=== PATIENT | female | born 1985 | race Caucasian/White ===

== ENCOUNTER → 2023-11-21 14:45 | Outpatient (REF) | payer OTHER, SELFPAY | LOC: HWRAD 14:45 | PROVIDERS: ATTENDING PHYSICIAN Nurse Practitioner Family; FAMILY PHYSICIAN Family Medicine | DX: N83.201 Unspecified ovarian cyst, right side (principal) | CPT/HCPCS: 76830; 76856 ==

== ENCOUNTER 2023-12-07 18:29 | Emergency (ER) | payer OTHER, SELFPAY ==
[2023-12-07 18:31] VITALS: BP 128/69
[2023-12-07] MEDS: FLEXERIL 10 MG PO (19:12)
--- NOTE | 2023-12-07 21:13 | ED.GENMED ---
History of Present Illness
General
Chief Complaint: Back Pain
Source: patient
Exam Limitations: none
Time Seen by Provider: 12/07/23 18:45
Nursing documentation reviewed up to this point in time: agreed with
Travel History
Have you had any contact with someone who has COVID-19?: No
Do you have any symptoms of coronavirus? Fever > 100 degrees, chills, cough, shortness of breath, sore throat, loss of taste or smell, muscle aches, or headache?: No
History of Present Illness
History of Present Illness:
Patient to ED with complaint of low back pain. States she was tightening child seat in car and developed pain. No radiation of pain, no weakness in extremities, no bowel or bladder issues. Taking ibu without improvement. BRought to ED by spouse
for eval.
Past History
Past History
ED Past Medical History: None
ED Past Surgical History: None
Review of Systems
Review of Systems
Allergies reviewed?: Yes
All Other Systems: ROS reviewed and negative except as documented in HPI and ROS
Constitutional: Reports no symptoms
EENT: Reports no symptoms
Respiratory: Reports no symptoms
Cardiac: Reports no symptoms
ABD/GI: Reports no symptoms
Musculoskeletal: Reports back pain (low back pain)
Skin: Reports no symptoms
Neurological: Reports no symptoms
Psychiatric: Reports no symptoms
Phy Exam
General Physical Exam
General Presentation: well appearing and mild distress
General age: appears stated age
General Skin: warm
General Habitus: normal
General Mental: alert
General Hydration: appears well hydrated
Musculoskeletal Exam
Musculoskeletal Exam: neuro vasc intact
Skin Exam
Skin Exam: normal color, warm/dry and no rash
Psychiatric Exam
Psychiatric Exam: normal mood/affect
Course
Orders/Labs/Results
Orders:
Orders
12/07/23 19:05
Cyclobenzaprine HCl [Flexeril] 10 mg PO NOW STA
12/07/23 19:33
Lumbar Spine Complete, 4 View [CR Lumbar Spine Comp Min 4 Vw*] Urgent
Comment:
Reason For Exam: pain
Vital Signs
Initial and Last Documented VS:
Initial Vital Signs
Temp Pulse Resp BP Pulse Ox
98.6 F 83 16 128/69 98
12/07/23 18:31 12/07/23 18:31 12/07/23 18:31 12/07/23 18:31 12/07/23 18:31
Last Documented Vital Signs
Temp Pulse Resp BP Pulse Ox
98.6 F 83 16 128/69 98
12/07/23 18:31 12/07/23 18:31 12/07/23 18:31 12/07/23 18:31 12/07/23 18:31
*Radiology
Radiology exam reviewed: radiology read reviewed
*Pulse Oximetry
Patient hypoxic: no
*Critical Care Note
Total Time (30-74mins, 75-104mins- exclusive of procedures): Not Applicable
ED Attending Note
-
Portions of this chart may have been created with voice recognition software.� Occasional wrong word or��sound alike� substitutions may have occurred due to the inherent limitations of voice recognition software.
Discharge Plan
Departure
Patient Disposition: Home (Routine Discharge)
Date of Disposition: 12/07/23
Time of Disposition: 21:09
Patient with high blood pressure during this ER visit?: No
Condition: Good
Covid-19: Not Applicable
Discharge Problem:
Back pain
Instructions: Low Back Pain (DC)
Prescriptions:
New
cyclobenzaprine 10 mg tablet
10 mg PO TID PRN (Reason: muscle spasm) Qty: 12 0RF
No Action
Vitamins Tabletsl
1 tab PO DAILY
Referrals:
Bing Mina MD [Family Provider] -
Interventions
Interventions:
*Risk Screen - Suicide Last Done: 12/07/23 19:12
*General Assessment Last Done: 12/07/23 18:31
*Neglect/Abuse Screening Last Done: 12/07/23 21:36
ED- Fall Risk Assessment Last Done: 12/07/23 19:56
*ED COVID-19 Vaccine History Last Done: 12/07/23 18:31
*Nursing Disposition Last Done: 12/07/23 21:36
ED-Musculoskeletal Assessment Last Done: 12/07/23 19:56
Discharge Date and Time
Discharge Date/Time: 12/07/23 21:40
== END 2023-12-07 21:40 | disposition home or self-care (01) ==
LOC: EMR 18:29
PROVIDERS: EMERGENCY PHYSICIAN Emergency Medicine; FAMILY PHYSICIAN Family Medicine
DX: M54.9 Dorsalgia, unspecified (principal)
CPT/HCPCS: 99283; 72110

== ENCOUNTER → 2024-09-20 15:48 | Outpatient (REF) | payer OTHER, SELFPAY ==
[2024-09-20 16:43] LABS: % Basophils 0.5 % (0-2); % Eosinophils 2.1 % (0-6); % Immature Granulocytes 0.2 % (0-0.5); % Lymphocytes 25.1 % (20.5-51.1); % Monocytes 4.3 % (1.7-9.3); % Neutrophils 67.8 % (42.2-75.2); Absolute Eosinophils 0.1 10^3/uL (0-0.7); Absolute Lymphocytes 1.7 10^3/uL (1.2-3.4); Absolute Monocytes 0.3 10^3/uL (0.1-0.6); Absolute Neutrophils 4.5 10^3/uL (1.4-6.5); Hematocrit 40.8 % (37.0-47.0); Hemoglobin 14.3 g/dL (12.0-16.0); Mean Corpuscular Hgb 31.4 pg (27.0-31.0); Mean Corpuscular Volume 89.5 fL (81.0-99.0); Mean Platelet Volume 9.5 fL (7.4-10.4); Nucleated Red Blood Cells % 0 %; Platelet Count 235 10^3/uL (130-400); Red Blood Cell Count 4.56 10^6/uL (4.20-5.40); Red Cell Dist. Width 12.5 % (11.5-14.5); White Blood Cell Count 6.6 10^3/uL (4.8-10.8)
[2024-09-20 17:10] LABS: Beta HCG Quantitative < 2.39 mIU/ml; Prolactin 25.6 ng/ml (3.0-18.6)
[2024-09-20 17:24] LABS: TSH Reflex To Free T4 0.99 uIU/ml (0.47-4.68)
[2024-09-20 17:25] LABS: Estradiol 245.6 pg/ml
== END ==
LOC: RAD 15:48
PROVIDERS: ATTENDING PHYSICIAN Nurse Practitioner Family; FAMILY PHYSICIAN Family Medicine
DX: N92.0 Excessive and frequent menstruation with regular cycle (principal)
CPT/HCPCS: 36415; 76830; 76856; 82670; 83001; 83002; 84146; 84443; 84702; 85025

== ENCOUNTER → 2024-10-19 15:24 | Outpatient (REF) | payer OTHER, SELFPAY | LOC: CLAB 15:24 | PROVIDERS: ATTENDING PHYSICIAN Advanced Practice Midwife | DX: N92.0 Excessive and frequent menstruation with regular cycle (principal) | CPT/HCPCS: 88305; 88342 ==